=== PATIENT | male | born 1975 | race Caucasian/White ===

== ENCOUNTER 2021-09-26 06:27 | Emergency (ER) | payer MEDICAID ==
[2021-09-26 08:01] LABS: ESTIMATED GFR 108 mL/min (>60)
[2021-09-26] MEDS: Furosemide 40 MG/4 ML VIAL IVPUSH ONE (08:35)
[2021-09-26] MEDS: Magnesium Sulfate/Water 2 GM in Premix Bag 1 BAG IV ONE (08:35)
[2021-09-26] MEDS: Iopamidol 612 MG/ML 100 ML Bottle IVPUSH ONE (09:23)
[2021-09-26] MEDS: Sodium Chloride 0.9% 10 ML Syringe FLUSH PRN (09:23)
== END 2021-09-26 11:34 | disposition home or self-care (01) ==
LOC: JD.ED 06:27
DX: I50.9 Heart failure, unspecified (principal); E83.42 Hypomagnesemia; E11.9 Type 2 diabetes mellitus without complications; F17.210 Nicotine dependence, cigarettes, uncomplicated; Z20.822 Contact with and (suspected) exposure to COVID-19
CPT/HCPCS: 36415; 71045; 72193; 76870; 80053; 83735; 83880; 84484; 85025; 85610; 87635; 93005; 93975; 96365; 96366; 96375; 99285; J1940; J3475; J3490; Q9967; U0002

== ENCOUNTER 2021-10-16 16:56 | Emergency (ER) | payer MEDICAID ==
[2021-10-16] MEDS ORDERED: Furosemide 40 MG Tab PO ONE (17:32)
[2021-10-16] MEDS ORDERED: cefTRIAXone 1 GM, Lidocaine 1% 2.1 ML IM ONE ×2 (17:32)
== END 2021-10-16 19:05 | disposition home or self-care (01) ==
LOC: JD.ED 16:56
DX: I50.9 Heart failure, unspecified (principal); N50.89 Other specified disorders of the male genital organs; E11.9 Type 2 diabetes mellitus without complications
CPT/HCPCS: 36415; 80053; 85025; 96372; 99284; A9270; J0696; 99283

== ENCOUNTER 2021-10-19 12:10 | Emergency (ER) | payer MEDICAID | END 2021-10-19 15:05 | disposition home or self-care (01) | LOC: JD.ED 12:10 | DX: R22.9 Localized swelling, mass and lump, unspecified (principal); E11.9 Type 2 diabetes mellitus without complications | CPT/HCPCS: 93971-26-RT; 93971-RT; 99283 ==

== ENCOUNTER 2022-04-11 14:12 | Emergency (ER) | payer MEDICAID, MEDICARE ==
[2022-04-11 15:36] LABS: ESTIMATED GFR 95 mL/min (>60)
== END 2022-04-11 17:39 | disposition home or self-care (01) ==
LOC: JD.ED 14:12
DX: R53.1 Weakness (principal); E11.9 Type 2 diabetes mellitus without complications; I50.9 Heart failure, unspecified; Z72.0 Tobacco use
CPT/HCPCS: 36415; 70450; 70450-26; 71045; 71045-26; 80053; 80306; 81003; 83605; 83690; 84484; 85025; 93005; 93010; 99283; 99285

== ENCOUNTER 2022-05-27 13:51 | Emergency (ER) | payer MEDICAID ==
[2022-05-27] MEDS ORDERED: Haloperidol Lactate 5 MG/ML SDV IM ONE ×2 (14:58→15:32)
[2022-05-27] MEDS ORDERED: LORazepam 1 MG Tab PO ONE (14:59)
[2022-05-27] MEDS: Haloperidol 5 MG Tab PO ONE ×2 (15:09→17:40)
[2022-05-27 16:56] LABS: CORONAVIRUS COVID-19 NAA NEGATIVE (NEGATIVE)
[2022-05-28] MEDS ORDERED: LORazepam 1 MG Tab PO ONE ×2 (06:00→10:00)
[2022-05-28] MEDS ORDERED: Haloperidol 5 MG Tab PO ONE ×2 (06:00→10:00)
[2022-05-28] MEDS ORDERED: Nicotine 21 MG/24 Hr Patch TRDERM ONE (07:16)
== END 2022-05-28 10:51 | disposition home or self-care (01) ==
LOC: JD.ED 13:51
DX: R45.851 Suicidal ideations (principal); F29 Unspecified psychosis not due to a substance or known physiological condition; I50.9 Heart failure, unspecified; E11.9 Type 2 diabetes mellitus without complications; Z79.899 Other long term (current) drug therapy; Z79.84 Long term (current) use of oral hypoglycemic drugs; Z20.822 Contact with and (suspected) exposure to COVID-19
CPT/HCPCS: 0241U; 36415; 80053; 80143; 80179; 80306; 80307; 81003; 84443; 85025; 93005; 96372; 99285; A9270; J1630; 93010; 99284

== ENCOUNTER 2022-11-09 15:49 | Emergency (ER) | payer MEDICAID ==
[2022-11-09] MEDS ORDERED: LORazepam 1 MG Tab PO ONE (16:09)
[2022-11-09 16:25] LABS: BASOPHILS ABSOLUTE AUTO 0.2 K/mm3 (0.0-0.2); BASOPHILS PERCENT AUTO 1.8 % (0.0-1.0); EOSINOPHILS ABSOLUTE AUTO 0.1 K/mm3 (0.0-0.4); EOSINOPHILS PERCENT AUTO 0.7 % (0.0-6.0); HEMATOCRIT 47.2 % (42.0-52.0); HEMOGLOBIN 16.1 gm/dl (14.0-18.0); IMMATURE GRAN ABSOLUTE AUTO 0.04 K/mm3 (0.00-0.05); IMMATURE GRAN PERCENT AUTO 0.4 % (0.0-0.4); LYMPHOCYTES ABSOLUTE AUTO 2.1 K/mm3 (1.0-4.8); LYMPHOCYTES PERCENT AUTO 20.9 % (24.0-44.0); MEAN CORPUSCULAR HEMOGLOBIN 30.9 pg (28.0-32.0); MEAN CORPUSCULAR HGB CONC 34.1 g/dl (32.0-36.0); MEAN CORPUSCULAR VOLUME 90.6 fl (83.0-99.0); MEAN PLATELET VOLUME 8.8 fl (9.4-12.4); MONOCYTES ABSOLUTE AUTO 0.9 K/mm3 (0.0-0.8); NEUTROPHILS ABSOLUTE AUTO 6.7 K/mm3 (1.8-7.7); NEUTROPHILS PERCENT AUTO 67.2 % (41.0-71.0); PLATELET COUNT,PLT 264 K/mm3 (150-400); RED BLOOD CELL COUNT 5.21 M/mm3 (4.52-5.90); WHITE BLOOD CELL COUNT,WBC 10.01 K/mm3 (3.9-11.3)
[2022-11-09 16:54] LABS: ALBUMIN 4.2 g/dl (3.4-5.0); ANION GAP 15.1 (5-15); BILIRUBIN TOTAL 0.8 mg/dL (0.2-1.0); BUN/CREATININE RATIO 18.2 (14-18); CALCIUM 9.8 mg/dL (8.5-10.1); CREATININE 1.1 mg/dL (0.7-1.3); EST CRCL DRUG DOSING (CG) 83.91 mL/min; POTASSIUM,K 4.1 mEq/L (3.5-5.1); PROTEIN TOTAL,TP 8.4 g/dl (6.4-8.2)
== END 2022-11-09 18:30 | disposition home or self-care (01) ==
LOC: JD.ED 15:49
DX: F45.8 Other somatoform disorders (principal); F41.9 Anxiety disorder, unspecified; E11.9 Type 2 diabetes mellitus without complications; Z79.84 Long term (current) use of oral hypoglycemic drugs; Z79.899 Other long term (current) drug therapy
CPT/HCPCS: 36415; 71046; 80053; 84484; 85025; 85379; 93005; 99284; A9270; 93010; 99283